=== PATIENT | female | born 1960 | race Caucasian/White ===

== ENCOUNTER → 2021-08-09 | Outpatient (CLI) | payer OTHER ==
[~2021-08-09] MED LIST: CEFUROXIME500 MG PO; IBUPROFEN800 MG PO; NORCO 5-325 TA1 EACH PO; ZOFRAN4 MG PO
== END ==
LOC: NM 09:55
DX: M14.672 Charcot's joint, left ankle and foot (principal)
CPT/HCPCS: 78315; A9503